=== PATIENT | male | born 2005 | race Hispanic/Latino ===

== ENCOUNTER 2024-03-20 01:27 | Emergency (ER) | payer SELFPAY | END 2024-03-20 01:45 | disposition home or self-care (01) | LOC: CSHERS 01:27 | DX: T28.0XXA Burn of mouth and pharynx, initial encounter (principal); F17.210 Nicotine dependence, cigarettes, uncomplicated; X58.XXXA Exposure to other specified factors, initial encounter | CPT/HCPCS: 99282 ==